=== PATIENT | male | born 1965 | race Caucasian/White ===

== ENCOUNTER → 2016-11-16 | Outpatient (CLI) | payer BC ==
[~2016-11-16] MED LIST: Gadobutrol 7.5 mMOL/7.5 ML SDV IVPUSH STA
--- NOTE | 2016-11-17 09:44 | MR ---
EXAMINATION: MRI of the brain with and without contrast. TECHNIQUE: Multiplanar and multisequence imaging of the brain without and following the administrati on of 7.5 mL of Gadavist. HISTORY: Headache. FINDINGS: Cerebral hemispheres and the deep nuclei are without hemorrhage, mass, edema, gliosis, enhancement o r atrophy. There is no abnormal diffusion restriction. No extraaxial collections or hemorrhage. Ventricular system is of normal size and configuration without hydrocephalus. The brainstem and cere bellum are without hemorrhage, mass, edema, gliosis, enhancement or atrophy. The carotid basilar ar robinson flow voids are intact. There is a trace fluid within the left mastoid air cells. No internal a uditory canal or cerebellopontine angle masses or enhancement. There is a trace mucosal thickening w ithin the lower maxillary sinuses. Globes, optic nerves, orbital apices, optic chiasm, optic tracts, lateral geniculate and visual rich ices are unremarkable. The pituitary and sella turcica are unremarkable. No meningeal enhancement. The craniocervical junction is unremarkable. No siderosis or evidence of vascular malformation. The calvarium is intact. IMPRESSION: 1. No abnormal intracranial findings.
== END ==
LOC: MW.MRI 16:11
PROVIDERS: ATTEND Family Medicine
DX: R51 Headache (principal)
CPT/HCPCS: 70553; A9585

== ENCOUNTER 2017-01-06 06:26 | Day surgery (SDC) | payer BC ==
[~2017-01-06 06:26] MED LIST changes: -Gadobutrol 7.5 mMOL/7.5 ML SDV IVPUSH STA; +Lactated Ringers 1,000 ML IV SCH; +Sodium Chloride 0.9% 10 ML Syringe FLUSH PRN; +Sodium Chloride 0.9% 2.5 ML Syringe FLUSH PRN
[2017-01-06] MEDS ORDERED: Lidocaine 2% 5 ML SDV ONE (06:55)
[2017-01-06] MEDS ORDERED: Propofol 200 MG/20 ML SDV ONE ×2 (06:56→07:33)
--- NOTE | 2017-01-06 07:02 | PCM.PREANE ---
Preanesthetic Assessment - Anesthesia/Transfusion/Family Hx Anesthesia History: Prior Anesthesia Without Reaction Other Type of Anesthesia Reaction Comment: none Family History of Anesthesia Reaction: No Transfusion History: No Prior Transfusion(s) Intubation History: Unknown - Review of Systems General: No Symptoms Pulmonary: No Symptoms Cardiovascular: No Symptoms Gastrointestinal: Hematochezia Neurological: No Symptoms Other: Reports: None - Physical Assessment Height: 1.78 m Weight: 92.533 kg ASA Class: 2 Mental Status: Alert & Oriented x3 Airway Class: Mallampati = 2 Dentition: Reports: Normal Dentition Thyro-Mental Finger Breadths: 3 Mouth Opening Finger Breadths: 3 ROM/Head Extension: Full Lungs: Normal respiratory effort Cardiovascular: Regular Rate, Regular Rhythm - Allergies Allergies/Adverse Reactions: Allergies Allergy/AdvReac Type Severity Reaction Status Date / Time codeine Allergy Cannot Verified 03/25/14 20:09 Remember - Blood Blood Available: No - Anesthesia Plan Pre-Op Medication Ordered: None - Acknowledgements Anesthesia Type Planned: MAC Pt an Appropriate Candidate for the Planned Anesthesia: Yes Alternatives and Risks of Anesthesia Discussed w Pt/Guardian: Yes Pt/Guardian Understands and Agrees with Anesthesia Plan: Yes PreAnesthesia Questionnaire HEENT History: Reports: Other (See Below) Other HEENT History: wears glasses Cardiovascular History: Reports: High Cholesterol, Hypertension Respiratory History: Reports: Other (See Below) Other Respiratory History: spot (mass) on rt lung 2 years ago, to be checked soon again Gastrointestinal History: Reports: Colon Polyp, GERD, Hiatal Hernia, Other (See Below) (fatty liver, nonalcoholic) Genitourinary History: Reports: Other (See Below) Other Genitourinary History: penile pain Musculoskeletal History: Reports: Other (See Below) Other Musculoskeletal History: joint pain, "possible arthritis" Neurological History: Reports: Migraines Psychiatric History: Reports: Anxiety, Depression - Past Surgical History Head Surgeries/Procedures: Reports: None HEENT Surgical History: Reports: Oral Surgery GI Surgical History: Reports: Colonoscopy, EGD Musculoskeletal Surgical History: Reports: Arthroscopic Knee (right knee) - SUBSTANCE USE Smoking Status *Q: Former Smoker (quit 07/16) Tobacco Use Within Last Twelve Months: Cigarettes Days Per Week of Alcohol Use: 1 Number of Drinks Per Day: 2 Total Drinks Per Week: 2 Recreational Drug Use History: No - HOME MEDS Home Medications: Home Meds Fish Oil/DHA/EPA [Fish Oil 1,200 MG] 2 tab PO DAILY 01/04/17 [History] Rizatriptan Benzoate [Rizatriptan] 1 tab PO ASDIRECTED PRN 01/04/17 [History] - CURRENT (IN HOUSE) MEDS Current Meds: Current Medications Lactated Ringer's (Ringers, Lactated) 1,000 mls @ 125 mls/hr IV ASDIRECTED MARITO Last Admin: 01/06/17 06:55 Dose: 125 mls/hr Sodium Chloride (Saline Flush) 10 ml FLUSH ASDIRECTED PRN PRN Reason: Keep Vein Open Sodium Chloride (Saline Flush) 2.5 ml FLUSH ASDIRECTED PRN PRN Reason: Keep Vein Open
[2017-01-06] MEDS ORDERED: fentaNYL 100 MCG/2 ML SDV ONE (07:30)
--- NOTE | 2017-01-06 08:20 | PCM.POSTAN ---
POST ANESTHESIA ASSESSMENT - MENTAL STATUS Mental Status: alert, oriented - RESPIRATORY Respiratory Status: respiratory rate WNL, airway patent, O2 saturation stable - CARDIOVASCULAR CV Status: pulse rate WNL, blood pressure stable - GASTROINTESTINAL GI Status: no symptoms - POST OP HYDRATION Hydration Status: adequate & stable - OBSERVATIONS Free Text/Narrative:: no anesthesia problems
[2017-01-06] MEDS ORDERED: Ondansetron 4 MG/2 ML SDV IVPUSH PRN (08:51)
--- NOTE | 2017-01-06 08:58 | PCM.OPNOTE ---
- General Post-Op/Procedure Note Date of Surgery/Procedure: 01/06/17 Operative Procedure(s): Diagnostic EGD and colonoscopy Findings: Mid esophagus polyps, chronic esophagitis (distal), gastritis and duodenitis, posterior anal fissure Pre Op Diagnosis: Esophagitis, Bright red bleeding per rectum Post-Op Diagnosis: Esophagitis, esophageal polyp, gastritis, duodenitis, posterior anal fissure. Anesthesia Technique: MAC Primary Surgeon: Clarita Simpson Condition: Good Free Text/Narrative:: Intake & Output 01/05/17 01/06/17 01/06/17 22:59 06:59 14:59 Intake Total 700 Balance 700
[2017-01-06 10:43] VITALS: BP 116/70
--- NOTE | 2017-01-06 21:12 | OR ---
SURGEON: SUZIE HURTADO MD DATE OF PROCEDURE: 01/06/2017 PREOPERATIVE DIAGNOSES: History of esophagitis, bright red bleeding per rectum. POSTOPERATIVE DIAGNOSES: Mid esophageal polyp, gastritis, duodenitis, esophagitis, posterior anal fissure. PROCEDURE PERFORMED: Diagnostic EGD and colonoscopy. INSTRUMENT USED: Olympus endoscope and colonoscope. ANESTHESIA: MAC. EXTENT OF EXAM: To the second portion of the duodenum, to the cecum. PREPARATION: Good. LIMITATIONS: None. INDICATIONS FOR EXAMINATION: The patient is a 51-year-old male, who presents with intermittent bright red bleeding per rectum. He has not had this before and is associated with bowel movements. The patient had a colonoscopy and EGD performed in the past. His EGD showed evidence of esophagitis. The patient has been managing his symptoms with Tums. He has CT evidence of a hiatal hernia. Given my concern for Brown's esophagus and/or continued esophagitis, I felt it was important that we perform another diagnostic EGD to follow up the other one he had several years back. Given the change in his bowel habits, I also recommended diagnostic colonoscopy. We discussed both procedures as well as expected perioperative course. We discussed the risks, including bleeding, infection, or damage to surrounding structures, including perforation. The patient verbalized understanding and wished to proceed. PROCEDURE IN DETAIL: The patient was brought into the endoscopy suite and placed in a beach chair position. A time-out was completed verifying the patient's name, age, date of , allergies, and procedure to be performed. Monitored anesthesia care was induced and continuous oxygen was provided via nasal cannula throughout the procedure. After adequate sedation was achieved, the Olympus endoscope was passed over the patient's tongue and advanced under direct visualization to the second portion of duodenum. A photograph was taken of the second portion of duodenum which appeared normal. The duodenal bulb had evidence of inflammation, but no ulceration. The scope was then brought into the stomach. A photograph was taken of the pylorus as well as the esophageal hiatus. The gastric mucosa appeared irritated with superficial areas of ulceration. Biopsies were taken of the gastric bodies, antrum, and fundus and sent for H. pylori testing. The scope was then brought into the esophagus. At the level of the GE junction the patient had tissue changes that were concerning for Brown's esophagus. There was a large amount of inflammation along the distal part of the esophagus. Biopsies were taken with the cold biopsy forceps of the distal esophagus and sent to pathology. The remainder of the esophageal mucosa appeared normal other than some polyps within the midesophagus. One of these was taken via a cold biopsy forceps and sent to pathology. The scope was then removed from the patient and this part of the procedure terminated. The patient was placed in left lateral decubitus position. I examined the anoderm and noted a chronic appearing posterior anal fissure. A photograph was taken of this. A digital rectal exam was performed which was otherwise within normal limits. The patient had no evidence of hemorrhoidal disease. A well lubricated colonoscope was inserted in the rectum and advanced under direct visualization to the level of cecum. The cecum was identified by both visual and anatomic landmarks. A photograph was taken of the cecal cap. Unfortunately I was unable to retroflex the scope within the cecum safely. The scope was then fully withdrawn while examining the color, texture, anatomy, and integrity mucosa from the cecum to the anal canal. The findings were consistent with normal colonic mucosa. The scope was then brought into the rectum and retroflexed to allow visualization of the anal canal opening. This appeared normal and a photograph was taken. The scope was then removed from the patient. The cecum to anus time was 7 minutes. The patient was transferred to the recovery room in stable condition. ENDOSCOPIC DIAGNOSIS: Mid esophageal polyp, gastritis, duodenitis, esophagitis, and posterior anal fissure. RECOMMENDATIONS: The patient to start on strict fiber regimen and was given lidocaine cream to apply to his anus after bowel movements. The patient is to do sitz baths on a regular basis. He will be started on pantoprazole and given Carafate. I will see the patient back in clinic in 2 weeks. LEAH CREWS /[id number]
== END 2017-01-06 09:00 | disposition home or self-care (01) ==
LOC: MW.SDS 06:26
PROVIDERS: ATTEND Surgery
DX: D13.0 Benign neoplasm of esophagus (principal); K22.10 Ulcer of esophagus without bleeding; Z88.8 Allergy status to other drugs, medicaments and biological substances; K21.9 Gastro-esophageal reflux disease without esophagitis; E78.00 Pure hypercholesterolemia, unspecified; I10 Essential (primary) hypertension; F17.210 Nicotine dependence, cigarettes, uncomplicated; Z91.09 Other allergy status, other than to drugs and biological substances; Z79.899 Other long term (current) drug therapy; Z98.890 Other specified postprocedural states; Z72.0 Tobacco use
CPT/HCPCS: 43239; 45378; 88305; 88312; J3010; J7120; J2704

== ENCOUNTER 2017-05-12 09:51 | Day surgery (SDC) | payer BC ==
[~2017-05-12 09:51] MED LIST changes: +Lidocaine 2% 5 ML SDV ONE; +Midazolam 1 MG/ML 2 ML SDV ONE; +Propofol 200 MG/20 ML SDV ONE; +fentaNYL 100 MCG/2 ML SDV ONE
--- NOTE | 2017-05-12 10:15 | PCM.PREANE ---
Preanesthetic Assessment - Anesthesia/Transfusion/Family Hx Anesthesia History: Prior Anesthesia Reaction (nausea and vomiting affter last EGD, not with prior endoscopies) Other Type of Anesthesia Reaction Comment: none Family History of Anesthesia Reaction: No Transfusion History: No Prior Transfusion(s) Intubation History: Unknown - Review of Systems General: No Symptoms Pulmonary: No Symptoms Cardiovascular: No Symptoms Gastrointestinal: No Symptoms Neurological: No Symptoms Other: Reports: None - Physical Assessment NPO Status Date: 05/11/17 O2 Sat by Pulse Oximetry: 95 Respiratory Rate: 16 Vital Signs: Last Vital Signs Temp 36.3 C 05/12/17 10:04 Pulse 65 05/12/17 10:04 Resp 16 05/12/17 10:04 BP 132/100 H 05/12/17 10:04 Pulse Ox 95 05/12/17 10:04 Height: 1.78 m Weight: 90.265 kg ASA Class: 2 Mental Status: Alert & Oriented x3 Airway Class: Mallampati = 2 Dentition: Reports: Normal Dentition ROM/Head Extension: Full Lungs: Clear to Auscultation, Normal Respiratory Effort Cardiovascular: Regular Rate, Regular Rhythm - Allergies Allergies/Adverse Reactions: Allergies Allergy/AdvReac Type Severity Reaction Status Date / Time codeine Allergy Nausea and Verified 05/09/17 13:39 Vomiting - Anesthesia Plan Pre-Op Medication Ordered: None - Acknowledgements Anesthesia Type Planned: MAC Pt an Appropriate Candidate for the Planned Anesthesia: Yes Alternatives and Risks of Anesthesia Discussed w Pt/Guardian: Yes Pt/Guardian Understands and Agrees with Anesthesia Plan: Yes PreAnesthesia Questionnaire HEENT History: Reports: Other (See Below) Other HEENT History: wears glasses Cardiovascular History: Reports: Hypertension Other Cardiovascular History: high BP at times Respiratory History: Reports: Other (See Below) Other Respiratory History: spot (mass) on rt lung 2 years ago, Gastrointestinal History: Reports: Colon Polyp, GERD, Hiatal Hernia Other Gastrointestinal History: hx anal fissure Genitourinary History: Reports: None Musculoskeletal History: Reports: Arthritis Other Musculoskeletal History: join Neurological History: Reports: Migraines Psychiatric History: Reports: Anxiety, Depression - Past Surgical History Head Surgeries/Procedures: Reports: None HEENT Surgical History: Reports: Oral Surgery GI Surgical History: Reports: Colonoscopy, EGD Musculoskeletal Surgical History: Reports: Arthroscopic Knee - SUBSTANCE USE Smoking Status *Q: Current Every Day Smoker Tobacco Use Within Last Twelve Months: Cigarettes Days Per Week of Alcohol Use: 1 Number of Drinks Per Day: 2 Total Drinks Per Week: 2 Recreational Drug Use History: No - HOME MEDS Home Medications: Home Meds Fish Oil/DHA/EPA [Fish Oil 1,200 MG] 1 tab PO ACLUNCH 01/04/17 [History] Rizatriptan Benzoate [Rizatriptan] 1 tab PO ASDIRECTED PRN 01/04/17 [History] Pantoprazole [ProTONIX] 40 mg PO ACBREAKFAST #90 tab.cr 01/06/17 [Rx] Ibuprofen 2 tab PO ASDIRECTED PRN 05/09/17 [History] Psyllium Husk [Fiber] 0.52 gm PO ASDIRECTED 05/09/17 [History] - CURRENT (IN HOUSE) MEDS Current Meds: Current Medications Lactated Ringer's (Ringers, Lactated) 1,000 mls @ 125 mls/hr IV ASDIRECTED MARITO Last Admin: 05/12/17 10:06 Dose: 125 mls/hr Sodium Chloride (Saline Flush) 10 ml FLUSH ASDIRECTED PRN PRN Reason: Keep Vein Open Sodium Chloride (Saline Flush) 2.5 ml FLUSH ASDIRECTED PRN PRN Reason: Keep Vein Open Discontinued Medications Fentanyl (Sublimaze) Confirm Administered Dose 100 mcg .ROUTE .STK-MED ONE Stop: 05/12/17 09:46 Lidocaine (Xylocaine-Mpf 2%) Confirm Administered Dose 5 ml .ROUTE .STK-MED ONE Stop: 05/12/17 09:46 Midazolam HCl (Versed 1 Mg/Ml) Confirm Administered Dose 2 mg .ROUTE .STK-MED ONE Stop: 05/12/17 09:46 Propofol (Diprivan 20 Ml) Confirm Administered Dose 400 mg .ROUTE .STK-MED ONE Stop: 05/12/17 09:46
[2017-05-12] MEDS ORDERED: Ondansetron 4 MG/2 ML SDV ONE (10:41)
--- NOTE | 2017-05-12 10:47 | PCM.OPNOTE ---
- General Post-Op/Procedure Note Date of Surgery/Procedure: 05/12/17 Operative Procedure(s): egd Findings: well healed distal esophagus Pre Op Diagnosis: severe esophagitis Post-Op Diagnosis: well healed esophagus with no further inflamation Anesthesia Technique: MAC Primary Surgeon: Clarita Simpson Condition: Good
[2017-05-12 11:17] VITALS: BP 121/76
--- NOTE | 2017-05-13 08:42 | OR ---
SURGEON: SUZIE HURTADO MD DATE OF PROCEDURE: 05/12/2017 PREOPERATIVE DIAGNOSIS: Esophagitis. POSTOPERATIVE DIAGNOSIS: Esophagitis. PROCEDURE PERFORMED: Diagnostic esophagogastroduodenoscopy. ANESTHESIA: MAC. INSTRUMENT USED: Olympus endoscope. EXTENT OF EXAM: Second portion of duodenum. PREPARATION: Good. LIMITATIONS: None. INDICATION FOR EXAMINATION: The patient is a 52-year-old male, who saw me 3 months ago for diagnostic EGD and colonoscopy. He was found to have severe erosive esophagitis on endoscopy. He was started on PPI and has had good resolution of his symptoms. Given the question of possible dysplasia on biopsy, the decision was made to take him back for a repeat scope to ensure that the esophagitis had resolved and that there was no dysplasia on any subsequent biopsies. The patient and I discussed the procedure as well as expected perioperative course. We discussed the risks, including bleeding and perforation. The patient verbalized understanding and wished to proceed. PROCEDURE IN DETAIL: The patient was brought to the endoscopy suite and placed in a beach chair position. A time-out was completed verifying the patient's name, age, date of , allergies, and procedure to be performed. A bite-block was placed in the patient's mouth and monitored anesthesia care induced. Continuous oxygen was provided via nasal cannula throughout the procedure. After adequate sedation was achieved, a well lubricated endoscope was then placed in the patient's mouth and advanced under direct visualization to the level of the second portion of duodenum. This appeared normal and a photograph was taken. The scope was then fully withdrawn while examining the color, texture, anatomy, and integrity of the mucosa from the duodenum to the posterior pharynx. The duodenum and gastric mucosa all appeared normal. The scope was brought into the distal esophagus and a photograph taken. The Z-line appeared intact and normal. There was no further evidence of erosive esophagitis. The esophagus appeared well healed and there were no distinct lesions noted. Biopsies were taken in 3 quadrants of the distal esophagus to send to pathology to ensure no evidence of dysplasia. The remainder of the esophagus was carefully inspected and no inflammation or ulceration was noted. The scope was then removed from the patient and the procedure terminated. ENDOSCOPIC DIAGNOSIS: Well-healed esophagitis. RECOMMENDATION: Follow up in clinic in 2 weeks to review the pathology results. LEAH CREWS /[id number]
== END 2017-05-12 11:30 | disposition home or self-care (01) ==
LOC: MW.SDS 09:51
PROVIDERS: ATTEND Surgery
DX: K20.9 Esophagitis, unspecified (principal); Z88.8 Allergy status to other drugs, medicaments and biological substances; K21.9 Gastro-esophageal reflux disease without esophagitis; E78.00 Pure hypercholesterolemia, unspecified; I10 Essential (primary) hypertension; F17.210 Nicotine dependence, cigarettes, uncomplicated; J30.2 Other seasonal allergic rhinitis; Z79.899 Other long term (current) drug therapy; Z98.890 Other specified postprocedural states
CPT/HCPCS: 43239; J2250; J2405; J3010; J7120; 00740; 88305; J2704